=== PATIENT | male | born 1980 | race Caucasian/White ===

== ENCOUNTER → 2021-01-25 | Day surgery (SDC) | payer BC ==
[~2021-01-25] MED LIST: Acetaminophen 325 MG Tab PO SCH; Cyclobenzaprine 10 MG Tab PO PRN; Lactated Ringers 1,000 ML IV SCH; Lactated Ringers 1,000 ML ONE; Lidocaine 1% 4 ML ONE; Lidocaine 1%/Sod Bicarbonate in NS 8.4% 1 ML Syringe IDERM PRN; Midazolam 1 MG/ML 2 ML SDV ONE; Pregabalin 25 MG Cap PO SCH; Propofol 200 MG/20 ML SDV ONE; Sodium Chloride 0.9% 10 ML Syringe FLUSH PRN; ceFAZolin 1 GM Vial ONE; fentaNYL 100 MCG/2 ML SDV ONE; oxyCODONE 5 MG Tab PO PRN; oxyCODONE ER 10 MG TAB.ER PO SCH
--- NOTE | 2021-01-25 09:16 | PCM.PREANE ---
Preanesthetic Assessment - Procedure Proposed Procedure: Left total hip arthroplasty - Anesthesia/Transfusion/Family Hx Anesthesia History: Prior Anesthesia Without Reaction Family History of Anesthesia Reaction: No Transfusion History: No Prior Transfusion(s) - Review of Systems General: No Symptoms Pulmonary: No Symptoms Cardiovascular: No Symptoms Gastrointestinal: No Symptoms Neurological: No Symptoms Other: Reports: None - Physical Assessment NPO Status Date: 01/24/21 NPO Status Time: 00:00 ASA Class: 2 Mental Status: Alert & Oriented x3 Airway Class: Mallampati = 1 Dentition: Reports: Normal Dentition, [place](s) Thyro-Mental Finger Breadths: 3 Mouth Opening Finger Breadths: 3 ROM/Head Extension: Full Lungs: Clear to Auscultation, Normal Respiratory Effort Cardiovascular: Regular Rate, Regular Rhythm - Imaging/EKG Impressions: NSR rate84 - Allergies Allergies/Adverse Reactions: Allergies Allergy/AdvReac Type Severity Reaction Status Date / Time banana Allergy Cannot Verified 01/25/21 08:46 Remember lisinopril AdvReac Cough Verified 01/25/21 08:46 - Anesthesia Plan Pre-Op Medication Ordered: None - Acknowledgements Anesthesia Type Planned: Spinal Pt an Appropriate Candidate for the Planned Anesthesia: Yes Alternatives and Risks of Anesthesia Discussed w Pt/Guardian: Yes Pt/Guardian Understands and Agrees with Anesthesia Plan: Yes PreAnesthesia Questionnaire HEENT History: Reports: Otitis Media, Other (See Below) Other HEENT History: conjunctivitis, visual changes, lip surgery Cardiovascular History: Reports: None Respiratory History: Reports: Other (See Below) Other Respiratory History: wheezing Gastrointestinal History: Reports: Chronic Diarrhea Genitourinary History: Reports: None ARCHITECT MANAGER History: Reports: None Musculoskeletal History: Reports: Other (See Below) Other Musculoskeletal History: left hip stiffness, muscle spasms, left knee pain Neurological History: Reports: None Psychiatric History: Reports: None Endocrine/Metabolic History: Reports: None Hematologic History: Reports: None Immunologic History: Reports: None Oncologic (Cancer) History: Reports: None Dermatologic History: Reports: None - Infectious Disease History Infectious Disease History: Reports: None - Past Surgical History Head Surgeries/Procedures: Reports: None HEENT Surgical History: Reports: None Cardiovascular Surgical History: Reports: None Respiratory Surgical History: Reports: None GI Surgical History: Reports: None Female Surgical History: Reports: None Male Surgical History: Reports: None Endocrine Surgical History: Reports: None Neurological Surgical History: Reports: None Musculoskeletal Surgical History: Reports: Other (See Below) Other Musculoskeletal Surgeries/Procedures:: left achilles repair Oncologic Surgical History: Reports: None Dermatological Surgical History: Reports: None - SUBSTANCE USE Tobacco Use Status *Q: Never Tobacco User Tobacco Use Within Last Twelve Months: No Second Hand Smoke Exposure: No Days Per Week of Alcohol Use: 2 Number of Drinks Per Day: 2 Total Drinks Per Week: 4 Recreational Drug Use History: No - HOME MEDS Home Medications: Home Meds Cholecalciferol (Vitamin D3) [Vitamin D3] 5,000 unit PO DAILY 01/24/21 [History] Aspirin [Aspirin EC] 325 mg PO BID #70 tab 01/25/21 [Rx] Cyclobenzaprine [Flexeril] 10 mg PO BID PRN #20 tab 01/25/21 [Rx] oxyCODONE 5 - 10 mg PO Q4H PRN #40 tab 01/25/21 [Rx] - CURRENT (IN HOUSE) MEDS Current Meds: Current Medications Acetaminophen (Acetaminophen 325 Mg Tab) 975 mg PO ONETIME YULY Stop: 01/25/21 15:00 Last Admin: 01/25/21 08:28 Dose: 975 mg Documented by: Morphine Sulfate 8 mg/Epinephrine HCl 0.3 mg/Cefuroxime Sodium 750 mg/Ketorolac Tromethamine 30 mg/Sodium Chloride 7.9 ml 0 mg .XX ASDIRECTED PRN PRN Reason: Pain Stop: 01/25/21 18:00 Lactated Ringer's (Ringers, Lactated) 1,000 mls @ 125 mls/hr IV ASDIRECTED YULY Stop: 01/25/21 23:00 Last Admin: 01/25/21 08:20 Dose: 125 mls/hr Documented by: Lidocaine/Sodium Bicarbonate (Lidocaine 1%/Sod Bicarbonate In Ns 8.4% 1 Ml Syringe) 0.25 ml IDERM ONETIME PRN PRN Reason: Prior to IV Start Stop: 01/25/21 18:00 Oxycodone HCl (Oxycodone Er 10 Mg Tab.Er) 10 mg PO ONETIME YULY Stop: 01/25/21 15:00 Last Admin: 01/25/21 08:31 Dose: 10 mg Documented by: Pregabalin (Pregabalin 25 Mg Cap) 50 mg PO ONETIME YULY Stop: 01/25/21 15:00 Last Admin: 01/25/21 08:31 Dose: 50 mg Documented by: Sodium Chloride (Sodium Chloride 0.9% 10 Ml Syringe) 10 ml FLUSH ASDIRECTED PRN PRN Reason: Keep Vein Open Stop: 01/25/21 18:00
[2021-01-25] MEDS: Morphine 8 MG, EPINEPHrine 0.3 MG, Cefuroxime 750 MG, Ketorolac 30 MG, Sodium Chloride ... PRN ×15 (11:12→11:45)
[2021-01-25] MEDS: Vancomycin 1 GM SDV ONE ×3 (11:14→11:46)
--- NOTE | 2021-01-25 12:29 | PCM.POSTAN ---
POST ANESTHESIA ASSESSMENT - MENTAL STATUS Mental Status: Alert, Oriented - VITAL SIGNS Vital Signs: Last Vital Signs Temp 36.6 C 01/25/21 08:14 Pulse 84 01/25/21 08:14 Resp 20 01/25/21 08:14 BP 153/104 H 01/25/21 08:14 Pulse Ox 96 01/25/21 08:14 - RESPIRATORY Respiratory Status: Respiratory Rate WNL, Airway Patent, O2 Saturation Stable - CARDIOVASCULAR CV Status: Pulse Rate WNL, Blood Pressure Stable - GASTROINTESTINAL GI Status: No Symptoms - PAIN Pain Score: 0 - POST OP HYDRATION Hydration Status: Adequate & Stable - OBSERVATIONS Free Text/Narrative:: no anesthesia complications noted
--- NOTE | 2021-01-25 14:29 | CR ---
Pelvis and left hip: AP view of the pelvis was obtained as well as crosstable lateral view of the left hip. Comparison: Prior CT left hip exam of 01/17/21. Left hip prosthesis is seen. Components are aligned. Soft tissue air is noted from the surgical procedure. Fairly severe joint space narrowing is seen within the superior right hip. Impression: 1. Satisfactory postoperative radiographic appearance of recently placed left hip prosthesis. 2. Degenerative change is noted within the right hip. Diagnostic code #2
--- NOTE | 2021-01-25 14:38 | PCM48HPAN ---
Post Anesthesia Note - EVALUATION WITHIN 48HRS OF ANESTHETIC Vital Signs in Normal Range: Yes Patient Participated in Evaluation: Yes Respiratory Function Stable: Yes Airway Patent: Yes Cardiovascular Function Stable: Yes Hydration Status Stable: Yes Pain Control Satisfactory: Yes Nausea and Vomiting Control Satisfactory: Yes Mental Status Recovered: Yes Vital Signs: Last Vital Signs Temp 36.2 C 01/25/21 12:50 Pulse 86 01/25/21 13:05 Resp 15 01/25/21 13:05 BP 141/98 H 01/25/21 13:05 Pulse Ox 98 01/25/21 13:05 - COMMENTS/OBSERVATIONS Free Text/Narrative:: no anesthesia complications noted
--- NOTE | 2021-02-06 17:30 | PCM.OPNOTE ---
- General Post-Op/Procedure Note Date of Surgery/Procedure: 01/25/21 Operative Procedure(s): left total hip arthroplasty with [employer] Pre Op Diagnosis: left hip osteoarthrosis Post-Op Diagnosis: Same Anesthesia Technique: Local, MAC, Spinal Primary Surgeon: Cecil Velásquez Anesthesia Provider: Chucho Burkett Ux Specialist: Mei Steinberg Ux Specialist: Sravani De Souza EBL in mLs: 600 Complications: None Condition: Good Free Text/Narrative:: 7 stem 56 cup 28+4 MDM
--- NOTE | 2021-02-08 09:05 | OR ---
DATE OF OPERATION: 01/25/2021 SURGEON: Cecil Velásquez MD OPERATION PERFORMED: Left total hip arthroplasty with [employer] robot[employer]. PREOPERATIVE DIAGNOSIS: Left hip osteoarthrosis. POSTOPERATIVE DIAGNOSIS: Left hip osteoarthrosis. ANESTHESIA: Local MAC with spinal. ANESTHESIA PROVIDER: Chucho Burkett CRNA. BIOMED TECH: Mei Steinberg PA-C and Sravani De Souza LPN. ESTIMATED BLOOD LOSS: 600 mL. COMPLICATIONS: None. CONDITION: Stable. IMPLANTS: 1. Mayte size 7 Accolade II stem. 2. Mayte size 56 mm Tritanium II acetabular cup. 3. Mayte size 28 +4/42 MDM components. DESCRIPTION OF PROCEDURE: The patient was identified in the preoperative holding area. Proper site was marked and identified by the surgeon. The patient was taken back to the operative theatre where after adequate anesthesia, the patient was placed in the right lateral decubitus position. Axillary roll was placed. All pegs were placed. The patient's gluteal fold was parallel to the floor and all pegs were well padded. The left hip was then sterilely prepped and draped in the usual sterile fashion. OR time-out was performed. The patient received 2 g IV Ancef. At this time, 3 small poke holes were made on the iliac crest, 3 fingerbreadths posterior to the ASIS. Three 4.0 Schanz pins were then placed and the [employer] robotic array checkpoints were placed down onto the iliac crest. A standard posterior incision was made. This was taken down to the IT band and gluteal fascia which was incised along the incisional length. Charnley retractor was placed. Short external rotators were identified and takedown of short external rotators was done from the level of the piriformis down to the lesser trochanter. The checkpoint was placed in the greater trochanter and leg lengths were measured using the [employer] robotics. Hip was then dislocated. Neck cut was completed and found to be adequate. Attention was turned to the acetabulum. Anterior and posterior acetabular retractors were placed. Circumferential removal of the labrum as well as pulvinar was done at this time. A checkpoint was then placed on the superior and lateral rim of the acetabulum. Fifteen points were then obtained intra-articularly and then 15 points were obtained extra-articularly on the acetabulum and then the anterior and posterior horns were marked for the [email or web address] robotic array. First, a 50 mm reamer was brought in with [email or web address] robotic arm, and I did ream with that to ream it medially and then the 56 mm reamer was placed and finished the ream. It was found to be an adequate ream at 45 degrees abduction and 20 degrees of anteversion. The cup was then placed on the [employer] robotic arm and was impacted into place and was found to have adequate fixation. MDM liner was then impacted into place. Attention was turned to the femur. Box chisel was used out laterally. Starter awl was placed down the canal. Starting with 0 broach, I was able to broach up to a size 7 which was found to be rotationally and vertically stable. A 28 +0 MDM components were applied. It was found to be a few millimeters short, so we did 28 +4 and was found to have adequate denominational of leg lengths and was stable throughout the range of motion. Bone hook was used to dislocate the trial implants. Trial implants were removed. Size 7 Accolade II stem was impacted in place. The MDM components were constructed on the back table and then impacted on the stem and the hip was relocated. #5 Ethibond suture was used for closure of the short external rotators and capsule. Periarticular injection was completed. 1 L pulse lavage irrigation with Ancef was irrigated through the hip along with 400 mL Irrisept irrigation. Topical tranexamic acid and vancomycin powder were applied. All checkpoints and arrays and pins were removed. #2 barbed suture was used for closure of the IT band and gluteal fascia, 2-0 Vicryl was used subcutaneously, and Prineo was used for skin closure. The patient had a sterile soft dressing applied and was sent to PACU in stable condition. MMODAL /[id number]
== END | disposition home or self-care (01) ==
LOC: JD.SDS 08:00
PROVIDERS: ATTEND Orthopaedic Surgery
DX: M16.12 Unilateral primary osteoarthritis, left hip (principal); Z88.8 Allergy status to other drugs, medicaments and biological substances; Z82.49 Family history of ischemic heart disease and other diseases of the circulatory system; Z79.899 Other long term (current) drug therapy; Z91.018 Allergy to other foods; Z79.82 Long term (current) use of aspirin; Z01.812 Encounter for preprocedural laboratory examination; Z20.822 Contact with and (suspected) exposure to COVID-19
CPT/HCPCS: 27130; 36415; 73501; 86850; 86900; 86901; 97116; 97161; A9270; C1713; C1776; J0171; J0690; J0697; J1885; J2250; J2270; J2704; J3010; J3370; J7120; 01214